=== PATIENT | male | born 1980 | race African-American/Black ===

== ENCOUNTER 2017-03-05 18:20 | Emergency (ER) | payer BC, OTHER ==
[2017-03-05 18:24] VITALS: BMI 24.3
[2017-03-05] MEDS ORDERED: SODIUM CHLORIDE 1,000 ML IV STA (18:40)
[2017-03-05 19:13] LABS: URINE APPEARANCE CLEAR; URINE BILIRUBIN NEGATIVE (NEGATIVE); URINE BLOOD NEGATIVE (NEGATIVE); URINE COLOR YELLOW; URINE GLUCOSE (UA) NEGATIVE (NEGATIVE); URINE KETONE NEGATIVE (NEGATIVE); URINE LEUK ESTERASE NEGATIVE (NEGATIVE); URINE NITRITE NEGATIVE (NEGATIVE); URINE PROTEIN NEGATIVE (NEGATIVE); URINE UROBILINOGEN NEGATIVE mg/dL (0.2-1.0)
[2017-03-05 19:14] LABS: BASOPHIL 0.9 % (0-2.0); EOSINOPHIL 0.2 % (0-4.5); MCH 32.3 pg (25.7-33.7); MCHC 33.8 g/dl (32.0-35.9); MEAN CELL VOLUME 95.6 fl (80-96); MEAN PLT VOLUME 7.6 fl (7.5-11.1); NEUTROPHILS 56.2 % (42.8-82.8); PLATELET COUNT 240 K/MM3 (134-434); RDW 13.9 % (11.9-15.9); WHITE BLOOD COUNT 6.2 K/mm3 (4.0-10.0)
[2017-03-05 19:23] LABS: STOOL FOR OCCULT BLOOD POSITIVE (NEGATIVE)
[2017-03-05 19:28] LABS: INR 1.28 (0.82-1.09); PROTHROMBIN TIME (PATIENT) 14.1 SEC (9.98-11.88)
[2017-03-05 19:36] LABS: ANION GAP 5 (8-16); BILIRUBIN,TOTAL 0.7 mg/dL (0.2-1.0); CALCIUM 9.3 mg/dL (8.5-10.1); CO2 31 mmol/L (21-32); GLUCOSE,RANDOM 80 mg/dL (74-106); SGPT/ALT 31 U/L (12-78); TOT PROT 8.6 g/dl (6.4-8.2)
[2017-03-05 19:38] LABS: ALK PHOS 78 U/L (45-117); SGOT/AST 27 U/L (15-37)
--- NOTE | 2017-03-05 19:47 | PDOC ---
History of Present Illness - General History Source: Patient Exam Limitations: No Limitations - History of Present Illness Initial Comments: The patient is a 36 yo M with a past medical history significant for anal fistula with repair in late 2015, inguinal hernias, hemorrhoids and anxiety who presents with bloody diarrhea. The patient states hes been experiencing lower abdominal pain and diarrhea for the past 2 days that turned into bloody diarrhea earlier today. The patient denies nausea and vomiting. The patient also endorses associated fever measured at home to be 101.0. The patient denies subjective chills. The patient denies chest pain, palpitations and lightheadedness. Allergies: NKDA Family Hx: Dad: DM and Colon CA Social Hx: ETOH socially <Isis Riley - Last Filed: 03/05/17 22:44> <Maryjo Richter - Last Filed: 03/06/17 03:15> - General Chief Complaint: Pain Stated Complaint: ABD PAIN/FEVER Time Seen by Provider: 03/05/17 19:22 Past History <Isis Riley - Last Filed: 03/05/17 22:44> - Past Medical History Anemia: No Asthma: No Cancer: No Cardiac Disorders: Yes (INTERMITTENT PALPITATIONS.) CVA: No COPD: No CHF: No Dementia: No Diabetes: No GI Disorders: Yes (chronic constipation) Disorders: No HTN: No Hypercholesterolemia: No Liver Disease: No Seizures: No Thyroid Disease: No - Surgical History Abdominal Surgery: No Appendectomy: No Cardiac Surgery: No GI Surgery: Yes (ANAL FISTUAL REPAIR) Lung Surgery: No Neurologic Surgery: No - Psycho/Social/Smoking Cessation Hx Anxiety: No Suicidal Ideation: No Smoking Status: No Smoking History: Never smoked Have you smoked in the past 12 months: No Number of Cigarettes Smoked Daily: 0 Hx Alcohol Use: Yes (SOCIAL) Drug/Substance Use Hx: No Substance Use Type: None Hx Substance Use Treatment: No <Maryjo Richter - Last Filed: 03/06/17 03:15> - Past Medical History Allergies/Adverse Reactions: Allergies Allergy/AdvReac Type Severity Reaction Status Date / Time No Known Drug Allergies Allergy Verified 03/05/17 18:24 Home Medications: Ambulatory Orders Clonazepam [Klonopin -] 0.5 mg PO DAILY PRN 03/05/17 Review of Systems - Review of Systems Able to Perform ROS?: Yes Comments:: CONSTITUTIONAL: Absent: fever, chills, diaphoresis, generalized weakness, malaise, loss of appetite HEENT: Absent: rhinorrhea, nasal congestion, throat pain, throat swelling, difficulty swallowing, mouth swelling, ear pain, eye pain, visual Changes CARDIOVASCULAR: Absent: chest pain, syncope, palpitations, irregular heart rate, lightheadedness , peripheral edema RESPIRATORY: Absent: cough, shortness of breath, dyspnea with exertion, orthopnea, wheezing, stridor, hemoptysis GASTROINTESTINAL: +abdominal pain, diarrhea, hematochezia Absent: abdominal distension, nausea, vomiting, constipation, GENITOURINARY: Absent: dysuria, frequency, urgency, hesitancy, hematuria, flank pain, genital pain MUSCULOSKELETAL: Absent: myalgia, arthralgia, joint swelling SKIN: Absent: rash, itching, pallor NEUROLOGIC: Absent: headache, focal weakness or paresthesias, dizziness, unsteady gait, seizure, mental status changes, bladder or bowel incontinence PSYCHIATRIC: Absent: anxiety, depression, suicidal or homicidal ideation, hallucinations. <Isis Riley - Last Filed: 03/05/17 22:44> *Physical Exam - Vital Signs Last Vital Signs Temp Pulse Resp BP Pulse Ox 100.2 F H 113 H 20 140/93 100 03/05/17 18:21 03/05/17 18:21 03/05/17 18:21 03/05/17 18:21 03/05/17 18:21 - Physical Exam Comments: GENERAL: Well-appearing, well-nourished. No apparent distress. HEENT: Normocephalic, atraumatic. PERRL, EOM intact. CARDIOVASCULAR: Normal S1, S2. Irregularly irregular. PULMONARY: Clear to auscultation bilaterally. ABDOMEN: Soft, non-distended, non-tender. EXTREMITIES: Normal ROM in all four extremities. No gross deformities. SKIN: Warm, dry. No rash NEUROLOGICAL: No focal neurological deficits. <Isis Riley - Last Filed: 03/05/17 22:44> - Vital Signs Last Vital Signs Temp Pulse Resp BP Pulse Ox 100.2 F H 113 H 20 140/93 100 03/05/17 18:21 03/05/17 18:21 03/05/17 18:21 03/05/17 18:21 03/05/17 18:21 <Maryjo Richter - Last Filed: 03/06/17 03:15> ED Treatment Course - LABORATORY CBC & Chemistry Diagram: 03/05/17 18:50 03/05/17 18:50 - ADDITIONAL ORDERS Additional order review: Laboratory Results 03/05/17 03/05/17 03/05/17 18:50 18:50 18:50 INR 1.28 H Sodium 138 Potassium 4.3 Chloride 102 Carbon Dioxide 31 Anion Gap 5 L BUN 6 L Creatinine 1.0 Creat Clearance w eGFR > 60 Random Glucose 80 Calcium 9.3 Total Bilirubin 0.7 AST 27 D ALT 31 Alkaline Phosphatase 78 Total Protein 8.6 H Albumin 4.0 Lipase 161 Urine Color Yellow Urine Appearance Clear Urine pH 6.0 Urine Protein Negative Urine Glucose (UA) Negative Urine Ketones Negative Urine Blood Negative Urine Nitrite Negative Urine Bilirubin Negative Urine Urobilinogen Negative Ur Leukocyte Esterase Negative Stool Occult Blood Positive 03/05/17 18:50 RBC 4.92 MCV 95.6 MCHC 33.8 RDW 13.9 MPV 7.6 Neutrophils % 56.2 D Lymphocytes % 24.1 D Monocytes % 18.6 H Eosinophils % 0.2 Basophils % 0.9 - Medications Given in the ED: ED Medications Discontinued Medications Generic Name Dose Route Start Last Admin Trade Name Freq PRN Reason Stop Dose Admin Acetaminophen 650 mg 03/05/17 20:10 03/05/17 20:22 Tylenol - PO 03/05/17 20:11 650 mg ONCE ONE Administration Sodium Chloride 1,000 mls @ 1,000 mls/hr 03/05/17 18:40 03/05/17 19:26 Normal Saline - IV 03/05/17 19:39 1,000 mls/hr ASDIR STA Administration <CarlozIsis nixon - Last Filed: 03/05/17 22:44> - LABORATORY CBC & Chemistry Diagram: 03/05/17 18:50 03/05/17 18:50 - ADDITIONAL ORDERS Additional order review: Laboratory Results 03/05/17 03/05/17 03/05/17 18:50 18:50 18:50 INR 1.28 H Sodium 138 Potassium 4.3 Chloride 102 Carbon Dioxide 31 Anion Gap 5 L BUN 6 L Creatinine 1.0 Creat Clearance w eGFR > 60 Random Glucose 80 Calcium 9.3 Total Bilirubin 0.7 AST 27 D ALT 31 Alkaline Phosphatase 78 Total Protein 8.6 H Albumin 4.0 Lipase 161 Urine Color Yellow Urine Appearance Clear Urine pH 6.0 Urine Protein Negative Urine Glucose (UA) Negative Urine Ketones Negative Urine Blood Negative Urine Nitrite Negative Urine Bilirubin Negative Urine Urobilinogen Negative Ur Leukocyte Esterase Negative Stool Occult Blood Positive 03/05/17 18:50 RBC 4.92 MCV 95.6 MCHC 33.8 RDW 13.9 MPV 7.6 Neutrophils % 56.2 D Lymphocytes % 24.1 D Monocytes % 18.6 H Eosinophils % 0.2 Basophils % 0.9 - Medications Given in the ED: ED Medications Discontinued Medications Generic Name Dose Route Start Last Admin Trade Name Freq PRN Reason Stop Dose Admin Sodium Chloride 1,000 mls @ 1,000 mls/hr 03/05/17 18:40 03/05/17 19:26 Normal Saline - IV 03/05/17 19:39 1,000 mls/hr ASDIR STA Administration <Maryjo Richter - Last Filed: 03/06/17 03:15> Medical Decision Making - Medical Decision Making 03/05/17 20:36 Pt comes with abd pain, N/V/D, and he has rectal bleeding in the ER; pt 03/06/17 01:36 Patient Name: Ramakrishna Rosario This is a preliminary report by imaging electronics warfare technician Exam : Contrast-enhanced CT abdomen and pelvis Images: 491 Clinical indication: Abdominal pain. Rectal bleeding fever. Findings: The lung bases are clear. The liver, gallbladder, spleen and pancreas all have a normal the adrenal glands are unremarkable. The kidneys have a normal appearance and ends symmetrically. There is no evidence of urinary tract obstruction. The gastrointestinal tract does not appear obstructed. No thickened or dilated small bowel is seen. Contrast is transit from the stomach through the proximal colon. The appendix has a normal appearance. The mid to distal sigmoid and rectum appear thickened and hyperemic with engorgement of the vasa recta, . The urinary bladder, prostate and seminal vessels are unremarkable. A tiny fat-containing left inguinal hernia is noted. No abdominal or pelvic adenopathy is seen. No lytic or blastic destructive osseous lesions are seen. Impression: Neural thickening and hyperemia of the distal sigmoid and rectum consistent with colitis, infectious or inflammatory. Consider ulcerative colitis. THIS DOCUMENT HAS BEEN ELECTRONICALLY SIGNED 03/06/17 02:45 Pt refusing to stay in patient to receive IV abx for colitis and to see GI for consultation. Pt wants to follow with PMD and GI [facility] outpatient. I am amenable to this plan, as pt has no fever at this time, and all his lab values are normal. <Maryjo Richter - Last Filed: 03/06/17 03:15> *DC/Admit/Observation/Transfer - Attestations Scribe Attestion: Documentation prepared by Isis Riley, acting as medical billing associate for Maryjo Richter MD/DO. <Isis Riley - Last Filed: 03/05/17 22:44> - Discharge Dispostion Admit: No <Maryjo Richter - Last Filed: 03/06/17 03:15> Diagnosis at time of Disposition: Colitis, Ulcerative colitis - Discharge Dispostion Disposition: HOME Condition at time of disposition: Improved - Referrals Referrals: Ira Santana MD [Primary Care Provider] - Rodrigo Antunez MD [Staff Physician] - - Patient Instructions Printed Discharge Instructions: DI for Ulcerative Colitis, DI for Colitis
[2017-03-05] MEDS ORDERED: ACETAMINOPHEN 325 MG TABLET (FP) PO ONE (20:10)
[2017-03-05] MEDS ORDERED: ACETAMINOPHEN 325 MG TABLET (FP) ONE (20:12)
[2017-03-06 01:28] VITALS: BP 127/70; PULSE 93; TEMP 97.8
[2017-03-06] MEDS ORDERED: AMPICILLIN NA/SULBACTAM NA 1.5 GM in SODIUM CHLORIDE 100 ML IVPB ONE (01:38)
== END 2017-03-06 03:27 | disposition home or self-care (01) ==
LOC: JER 18:20
PROC: 3E0337Z Introduction of Electrolytic and Water Balance Substance into Peripheral Vein, Percutaneous Approach (ICD-10-PCS; principal; 2017-03-05)
PROC: 3E03329 Introduction of Other Anti-infective into Peripheral Vein, Percutaneous Approach (ICD-10-PCS; 2017-03-05)
DX: K52.9 Noninfective gastroenteritis and colitis, unspecified (principal)
CPT/HCPCS: 36415; 71020-TC; 74177-TC; 80053; 81003; 82272; 83690; 85025; 85610; 87045; 87046; 87186; 96361; 96365; 99283-25

== ENCOUNTER 2017-04-28 12:40 | Day surgery (SDC) | payer OTHER ==
[2017-04-28 12:56] VITALS: BMI 24.6
[2017-04-28 14:18] VITALS: TEMP 98
[2017-04-28 15:29] VITALS: BP 118/69; PULSE 67
--- NOTE | 2017-05-02 14:28 | PATH ---
Surgical Pathology Report Patient Name: BAYRON BORJAS [facility] [place]. Rec. #: [id number] /Age/Gender: 1980 (Age: 36) / M Account: [id number] Location: U-ENDOSCOPY Taken: 04/28/2017 Received: 05/01/2017 Reported: 05/02/2017 Physicians: Dejan Rios M.D. Specimen(s) Received A: BX ILEUM B: BX SIGMOID COLOLITIS C: BX RECTUM Clinical History Rectal bleeding, colitis Hemorrhoids, proctitis, colitis, nodular mucosa ileum Final Diagnosis A. ILEUM, BIOPSY: ILEAL MUCOSA WITH REACTIVE HYPERPLASIA OF MUCOSA ASSOCIATED LYMPHOID TISSUE. NO EVIDENCE OF ACTIVE INFLAMMATION, SIGINIFICANT ARCHITECTURAL DISTORTION, GRANULOMATA OR DYSPLASIA; NO INCREASE IN INTRAEPITHELIAL LYMPHOCYTES. B. COLON, SIGMOID, COLITIS, BIOPSY: COLONIC MUCOSA WITH FEW NEUTROPHILS IN LAMINA PROPRIA AND FOCAL MUCOSAL HEMORRHAGE. NO EVIDENCE OF SIGNIFICANT ARCHITECTURAL DISTORTION, GRANULOMATA OR DYSPLASIA. C. RECTUM, PROCTITIS, BIOPSY: RECTAL MUCOSA WITH ACTIVE PROCTITIS WITH FOCAL CRYPTITIS AND FOCAL MILD CRYPT REGENERATIVE CHANGES (SEE COMMENT). NO EVIDENCE OF GRANULOMATA OR DYSPLASIA. Comment: The histologic findings are non-specific and may represent active colitis/proctitis of various etiologies including injections and drug/toxin injury. Focal crypt regenerative changes are seen, idiopathic bowel disease cannot be excluded. Endoscopic, clinical and serological correlations and followup are suggested. Electronically Signed Marvin Duarte M.D. Gross Description A. Received in formalin, labeled "ileum" are 2 palacios fragments of tissue 0.2 and 0.3 cm in greatest dimension. The specimens are submitted in toto in one and cassette. B. Received in formalin, labeled "biopsy sigmoid" are 3 fragments of palacios tissue ranging from 0.2-0.4 cm in greatest dimension. The specimens are submitted in toto in one cassette. C. Received in formalin, labeled "biopsy rectum" are 2 fragments of palacios tissue 0.1 and 0.3 cm in greatest dimension. The specimens are submitted in toto in one cassette. AF/05/01/2017 final/05/01/2017
== END 2017-04-28 15:43 | disposition home or self-care (01) ==
LOC: JASU-ENDO 12:40
PROVIDERS: ATTEND Internal Medicine Gastroenterology
PROC: 0DBN8ZX Excision of Sigmoid Colon, Via Natural or Artificial Opening Endoscopic, Diagnostic (ICD-10-PCS; 2017-04-28)
PROC: 0DBP8ZX Excision of Rectum, Via Natural or Artificial Opening Endoscopic, Diagnostic (ICD-10-PCS; 2017-04-28)
PROC: 0DBB8ZX Excision of Ileum, Via Natural or Artificial Opening Endoscopic, Diagnostic (ICD-10-PCS; principal; 2017-04-28 14:30)
DX: K62.5 Hemorrhage of anus and rectum (principal); K64.8 Other hemorrhoids; K52.9 Noninfective gastroenteritis and colitis, unspecified
CPT/HCPCS: 36415; 87045; 87046; 87177; 87209; 88305-TC

== ENCOUNTER 2018-04-30 14:30 | Emergency (ER) | payer OTHER ==
[2018-04-30 14:51] VITALS: BP 145/93; PULSE 72; TEMP 99; BMI 24.7
--- NOTE | 2018-04-30 14:55 | PDOC ---
Rapid Medical Evaluation Chief Complaint: Palpitations Time Seen by Provider: 04/30/18 14:54 Medical Evaluation: Allergies Allergy/AdvReac Type Severity Reaction Status Date / Time No Known Drug Allergies Allergy Verified 03/05/17 18:24 Vital Signs Temp Pulse Resp BP Pulse Ox 99 F 72 18 145/93 99 04/30/18 14:50 04/30/18 14:50 04/30/18 14:50 04/30/18 14:50 04/30/18 14:50 04/30/18 14:54 The patient presents with a chief complaint of: palpitations I have performed a brief in-person evaluation of this patient. Pertinent physical exam findings: vss, stable I have ordered the following: ekg, labs The patient will proceed to the ED for further evaluation. Discharge Disposition - Referrals Referrals: Marlen Nava MD [Primary Care Provider] - - Patient Instructions - Post Discharge Activity
--- NOTE | 2018-05-02 11:41 | EKG ---
Test Reason : Blood Pressure : / mmHG Vent. Rate : 072 BPM Atrial Rate : 072 BPM P-R Int : 150 ms QRS Dur : 080 ms QT Int : 352 ms P-R-T Axes : 060 040 030 degrees QTc Int : 385 ms NORMAL SINUS RHYTHM NORMAL ECG WHEN COMPARED WITH ECG OF 19-JUL-2014 10:41, NO SIGNIFICANT CHANGE WAS FOUND Confirmed by SATYA URRUTIA MD ([id number]) on 05/02/2018 11:41:44 AM Referred By: Confirmed By:SATYA URRUTIA MD
== END 2018-04-30 15:49 | disposition left against medical advice (07) ==
LOC: JER 14:30
DX: Z53.21 Procedure and treatment not carried out due to patient leaving prior to being seen by health care provider (principal)
CPT/HCPCS: 93005; 93010; 99281-25

== ENCOUNTER 2018-05-17 23:15 | Emergency (ER) | payer OTHER ==
[2018-05-17 23:21] VITALS: BP 153/92; PULSE 87; TEMP 98; BMI 25.5
[2018-05-18] MEDS ORDERED: ACETAMINOPHEN 500 MG TABLET (FP) PO ONE (00:51)
[2018-05-18] MEDS ORDERED: diazePAM 2 MG TABLET PO ONE (00:51)
[2018-05-18] MEDS ORDERED: KETOROLAC TROMETHAMINE 30 MG/1 ML VIAL IM ONE (00:51)
[2018-05-18] MEDS ORDERED: ACETAMINOPHEN 325 MG TABLET (FP) ONE (01:01)
[2018-05-18] MEDS ORDERED: KETOROLAC TROMETHAMINE 30 MG/1 ML VIAL ONE (01:02)
[2018-05-18] MEDS ORDERED: diazePAM 2 MG TABLET ONE (01:02)
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
[2018-05-18] MEDS ORDERED: oxyCODONE HCL 5 MG TABLET PO ONE (03:13)
[2018-05-18] MEDS ORDERED: oxyCODONE HCL 5 MG TABLET ONE (03:18)
== END 2018-05-18 03:23 | disposition home or self-care (01) ==
LOC: JER 23:15
PROC: 3E0233Z Introduction of Anti-inflammatory into Muscle, Percutaneous Approach (ICD-10-PCS; principal; 2018-05-17)
DX: M62.838 Other muscle spasm (principal); W10.8XXA Fall (on) (from) other stairs and steps, initial encounter; Y93.89 Activity, other specified; Y92.038 Other place in apartment as the place of occurrence of the external cause; Y99.8 Other external cause status
CPT/HCPCS: 71046-TC-FY; 73030-TC-LT-FY; 73610-TC-RT-FY; 99283-25

== ENCOUNTER 2021-05-27 14:06 | Emergency (ER) | payer OTHER ==
[2021-05-27 14:15] VITALS: PULSE 73; TEMP 98.3; BMI 27.7
[2021-05-27] MEDS ORDERED: SODIUM CHLORIDE 1,000 ML IV STA (14:54)
[2021-05-27 16:13] LABS: BASO % 0.6 % (0-2.0); EOS % 1.1 % (0-4.5); HEMATOCRIT 47.2 % (35.4-49); LYMPH % 40.6 % (8-40); MCH 32.4 pg (25.7-33.7); MCHC 33.8 g/dl (32.0-35.9); MEAN CELL VOLUME 95.8 fl (80-96); MEAN PLT VOLUME 7.3 fl (7.5-11.1); MONO % 10.8 % (3.8-10.2); NEUT % 46.9 % (42.8-82.8); PLATELET COUNT 256 10^3/uL (134-434); RBC 4.93 M/mm3 (4.00-5.60); RDW 13.6 % (11.9-15.9); RETICULOCYTES 1.26 % (0.5-1.5); WHITE BLOOD COUNT 5.1 K/mm3 (4.0-10.0)
[2021-05-27 16:27] LABS: CALCIUM 9.7 mg/dL (8.5-10.1); INR 1.04 (0.83-1.09); PROTHROMBIN TIME (PATIENT) 11.6 SEC (9.7-13.0)
[2021-05-27 16:28] LABS: ALBUMIN 3.7 g/dl (3.4-5.0); BLOOD UREA NITROGEN 8.4 mg/dL (7-18)
[2021-05-27 16:31] LABS: ACTIVATED PTT 28.7 SECONDS (25.2-36.5)
[2021-05-27 16:32] LABS: CREATININE 0.9 mg/dL (0.55-1.3)
[2021-05-27 16:33] LABS: BILIRUBIN,TOTAL 0.5 mg/dL (0.2-1); TOT PROT 8.6 g/dl (6.4-8.2)
[2021-05-27 19:38] VITALS: BP 145/82
== END 2021-05-27 19:38 | disposition home or self-care (01) ==
LOC: JER 14:06
DX: K51.20 Ulcerative (chronic) proctitis without complications (principal)
CPT/HCPCS: 36415; 74177-TC; 80053; 82272; 85025; 85045; 85610; 85730; 86850; 86900; 86901; 99284-25; Q9967